=== PATIENT | female | born 1985 | race Caucasian/White ===

== ENCOUNTER 2017-03-07 06:30 | Inpatient (IN) | payer OTHER ==
[~2017-03-07] VITALS: Ht 167.6 cm; Wt 82.6 kg
--- NOTE | ~2017-03-07 | FD ---
ADMIT: 03/07/2017 RM/LOC: 228 [facility] MR#: [id number] [address] [address] KORINA SEVILLAANDREA [address] [place] [address] Final Diagnosis SEX: F AGE: 32 : 1985 ADMISSION DATE: 03/07/2017 DISCHARGE DATE: 03/08/2017 FINAL DIAGNOSIS: Status post spontaneous vaginal delivery at term. PROCEDURE: 03/07/2017 spontaneous vaginal delivery with delivery of viable male, 9 pounds 1 ounce, Apgars 8 and 9. Alanna Dent MD/ fartun JOB #: [id number] CC: Alanna Dent MD, Attending Physician FAMILY PHYSICIAN, Family Physician
[2017-03-09] MEDS ORDERED: MOTRIN-DPS800 MG PO (18:53)
[2017-03-09] MEDS ORDERED: PRENATAL VIT1 TAB PO (18:53)
[2017-03-09] MEDS ORDERED: TYLENOL EXTRA500 MG PO (18:54)
[2017-03-09] MEDS ORDERED: NIPPLECREAM TP (18:54)
--- NOTE | 2017-03-31 08:52 | HP ---
ADMIT: 03/07/2017 RM/LOC: 228 [facility] MR#: [id number] [id number] [place], [place] [address] ANTONIO SEVILLA [address] [place] [address] History and Physical SEX: F AGE: 32 : 1985 DATE OF SERVICE: CHIEF COMPLAINT: Induction of labor. HISTORY OF PRESENT ILLNESS: This is a 32-year-old female, 2, para 1, who presents to the [facility] with an intrauterine at 41 and 2/7th weeks' gestation for induction of labor. Her estimated date of confinement is 02/26/2017, and this was established by ultrasound. Her has been uncomplicated. LABORATORY DATA: Blood type is A positive, antibody screen negative, rubella immune, RPR nonreactive, hepatitis B surface antigen negative. Gonorrhea and chlamydia negative. one-hour glucose tolerance test 140. Pap was normal in 2016. Group B strep is negative. PAST MEDICAL HISTORY: She denies hypertension, diabetes, asthma, kidney, or thyroid disease. PAST OBSTETRICAL HISTORY: She had 1 term spontaneous vaginal delivery that baby weighed 7 pounds, 5 ounces. PAST SURGICAL HISTORY: Reconstruction of her big toe for an ingrown toenail in 2003, tonsillectomy in 2005, and wisdom teeth extraction in 2007. SOCIAL HISTORY: She is . Her is currently living in a different state as he is part of the armed forces. She denies tobacco, alcohol, or drug use. ALLERGIES: NO KNOWN DRUG ALLERGIES. CURRENT MEDICATIONS: 1. vitamins. 2. Magnesium oxide. PHYSICAL EXAMINATION: VITAL SIGNS: Temperature is 98.1, pulse 80, blood pressure 136/88, and respirations 20. GENERAL: This is a pleasant female, in no acute distress. HEENT: Head is normocephalic and atraumatic. Pupils are equal, round, react to light and accommodation. Extraocular muscles are intact. NECK: Supple. HEART: Regular rate and rhythm. LUNGS: Clear bilaterally. ABDOMEN: Soft, nontender, and nondistended. Gravid. EXTREMITIES: Nontender. heart tones are 140 baseline. Moderate variability is present, 15 x 15 ADMIT: 03/07/2017 RM/LOC: 228 [facility] MR#: [id number] [address] [address] ANTONIO SEVILLA [address] [place] [address] History and Physical SEX: F AGE: 32 : 1985 accelerations are present. Decelerations are absent. Uterine contractions are every 3 to 4 minutes. Her cervix is 2 cm, 70%, -2 station per nursing staff. Fetus is vertex. Estimated weight is 8.5 pounds. IMPRESSION: 1. This is a 32-year-old female, 2, para 1, with an intrauterine at 41 and 2/7th weeks' gestation. 2. Group B streptococcus negative. PLAN: At this time, we do plan to admit the patient for induction of labor. We will start Pitocin, use assisted rupture of membranes as needed, and anticipate a spontaneous vaginal delivery. Alanna Dent MD/ marlin JOB #: [id number] CC: Alanna Dent, Attending Physician FAMILY PHYSICIAN, Family Physician
--- NOTE | 2017-03-31 08:57 | OR ---
ADMIT: 03/07/2017 RM/LOC: 228 [facility] MR#: [id number] [address] [address] ANTONIO SEVILLA [address] [place] [address] Operative/Delivery Room Report SEX: F AGE: 32 : 1985 SURGERY DATE: 03/07/2017 SURGEON: Alanna Dent MD PREOPERATIVE DIAGNOSES: 1. Intrauterine at 41 and 2/7th weeks' gestation. 2. Active labor. 3. Group B Streptococcus negative. POSTOPERATIVE DIAGNOSES: 1. Intrauterine at 41 and 2/7th weeks' gestation, delivery of a viable male infant at 1341 hours, weighing 9 pounds 1 ounce with scores of 8 at 1 minute and 9 at 5 minutes. 2. Active labor. 3. Group B Streptococcus negative. PROCEDURE: Spontaneous vaginal delivery with repair of left labia minora laceration. ANESTHESIA: 1% lidocaine. COMPLICATIONS: None. ESTIMATED BLOOD LOSS: 200 mL. FLUIDS: Crystalloid. INDICATIONS: This is a 32-year-old female, 2, para 1, who presented to the [facility] with an intrauterine at 41 and 2/7th weeks' gestation for induction of labor. Her was uncomplicated. She was started on Pitocin, assisted rupture of membranes was performed when she was 4 cm dilated. She progressed to be complete in a satisfactory fashion, at which time, she was allowed to push bringing the infant's vertex to the perineum. PROCEDURE IN DETAIL: The patient was noted to be complete. She was placed in the dorsal lithotomy position and prepped and draped in usual sterile fashion. She was asked to push and deliver the infant's vertex in the left occiput- anterior position over the midline. Nuchal cord was checked and none was noted. The anterior shoulder delivered, followed by the posterior shoulder ADMIT: 03/07/2017 RM/LOC: 228 [facility] MR#: [id number] [address] [facility] [address] [place], [place] [address] ANTONIO SEVILLA [address] [place] [address] Operative/Delivery Room Report SEX: F AGE: 32 : 1985 and the remainder of the . The infant did have spontaneous cry and movement of all 4 extremities. He was passed to the mother's abdomen where nursing personnel were in attendance. After 1 minute, the cord was clamped x2 and cut. Cord blood was obtained. 20 units of Pitocin were infused with IV fluids to help firm the uterus. Examination of the cervix and vaginal vault did not reveal any lacerations. Examination of the perineum did not reveal any lacerations. She was noted to have a tear in the left labia minora. This was repaired using 1% lidocaine and interrupted sutures of 3-0 Vicryl. The patient tolerated the procedure well. Sponge, needle, and instrument counts were correct. She did recover in her Labor and Delivery suite with her infant. Of note, the 's right shoulder was the shoulder underneath the pubic bone at the time of delivery. Alanna Dent MD/ marlin JOB #: [id number] CC: Alanna Dent, Attending Physician FAMILY PHYSICIAN, Family Physician
== END 2017-03-08 16:20 | disposition home or self-care (01) | DRG 775 ==
LOC: BC 06:30 → 2LDRP 06:30
PROVIDERS: ADMIT Obstetrics & Gynecology
PROC: 10907ZC Drainage of Amniotic Fluid, Therapeutic from Products of Conception, Via Natural or Artificial Opening (ICD-10-PCS; principal; 2017-03-07)
PROC: 10E0XZZ Delivery of Products of Conception, External Approach (ICD-10-PCS; principal; 2017-03-07)
PROC: 0UQMXZZ Repair Vulva, External Approach (ICD-10-PCS; principal; 2017-03-07)
PROC: 3E033VJ Introduction of Other Hormone into Peripheral Vein, Percutaneous Approach (ICD-10-PCS; principal; 2017-03-07)
DX: O48.0 Post-term pregnancy (principal); O70.0 First degree perineal laceration during delivery; Z3A.41 41 weeks gestation of pregnancy; Z37.0 Single live birth